=== PATIENT | female | born 1985 | race African-American/Black ===

== ENCOUNTER 2017-12-19 10:55 | Emergency (ER) | payer MEDICAID ==
[~2017-12-19] VITALS: Ht 154.9 cm; Wt 86.0 kg
[2017-12-19] MEDS ORDERED: KETOROLAC 30MG/ML VIAL IV STA (11:12)
[2017-12-19] MEDS ORDERED: SODIUM CHLORIDE 0.9% 1,000 ML IV ONE (11:12)
[2017-12-19 11:46] LABS: BASOPHILS % 0.6 % (0.0-2.0); EOSINOPHILS % 1.6 % (0.0-5.0); HEMATOCRIT. 36.9 % (36.0-48.0); HEMOGLOBIN. 11.9 g/dL (12.0-16.0); LYMPHOCYTES % 43.1 % (20.0-50.0); MEAN CORPUSCULAR HEMOGLOBIN 28.3 pg (28.0-32.0); MEAN CORPUSCULAR VOLUME 87.5 fL (81.0-99.0); MEAN PLATELET VOLUME 9.7 fl (7.4-10.4); MONOCYTES % 9.3 % (2.0-8.0); NEUTROPHILS % 45.4 % (40.0-76.0); PLATELET 202 x1000/uL (130-400); RED BLOOD CELL COUNT 4.21 mill/uL (4.2-5.4); RED CELL DISTRIBUTION WIDTH 14.5 % (11.6-14.6)
[2017-12-19 11:53] LABS: INR 1.1; PARTIAL THROMBOPLASTIN TIME 28.9 sec (23.4-31.0); PROTHROMBIN TIME 11.4 sec (9.4-11.6)
[2017-12-19 12:03] LABS: CARBON DIOXIDE 24 mEq/L (21-32); CHLORIDE 106 mEq/L (98-107); TROPONIN I < 0.02 ng/mL (0.00-0.04)
[2017-12-19 12:22] LABS: HCG SCREEN NEGATIVE
[2017-12-19 14:01] VITALS: BP 108/61
== END 2017-12-19 14:44 | disposition home or self-care (01) ==
LOC: ER 11:16
DX: R07.9 Chest pain, unspecified (principal); Z88.0 Allergy status to penicillin
CPT/HCPCS: 36415; 71045; 80048; 84484; 84703; 85025; 85610; 85730; 93005; 96361; 96374; 99285; J1885; J7030

== ENCOUNTER 2021-05-19 01:31 | Inpatient (IN) | payer MEDICAID ==
[~2021-05-19] VITALS: Ht 157.5 cm; Wt 95.3 kg
[2021-05-19 03:23] LABS: BASOPHILS % 0.9 % (0.0-2.0); EOSINOPHILS % 1.8 % (0.0-5.0); HEMATOCRIT. 37.4 % (36.0-48.0); HEMOGLOBIN. 12.5 g/dL (12.0-16.0); LYMPHOCYTES % 42.2 % (20.0-50.0); MEAN CORPUSCULAR HEMOGLOBIN 27.9 pg (28.0-32.0); MEAN CORPUSCULAR VOLUME 83.8 fL (81.0-99.0); MEAN PLATELET VOLUME 9.4 fl (7.4-10.4); NEUTROPHILS % 48.1 % (40.0-76.0); PLATELET 222 x1000/uL (130-400); RED BLOOD CELL COUNT 4.47 mill/uL (4.2-5.4)
[2021-05-19 03:25] LABS: CHLORIDE 106 mEq/L (98-107)
[2021-05-19 03:29] LABS: D-DIMER 0.56 mg/L FEU (<0.50); PROTHROMBIN TIME 10.5 sec (9.6-11.0)
[2021-05-19] MEDS ORDERED: KETOROLAC 15MG/ML VIAL IV ONE (04:15)
[2021-05-19] MEDS ORDERED: HYDROCODONE/ACETAMINOPHEN 5/325MG TABLET PO ONE (04:30)
[2021-05-19] MEDS ORDERED: IOHEXOL-350 100 ML BOTTLE ONE (05:19)
[2021-05-19] MEDS ORDERED: ASPIRIN 81MG TABLET PO ONE (06:15)
[2021-05-19 09:00] VITALS: BP 108/65
[2021-05-19] MEDS ORDERED: APIX5TAB MT (09:46)
[2021-05-19 10:00] VITALS: BP 108/65
[2021-05-19 12:00] VITALS: BP 101/59
[2021-05-19] MEDS: MORPHINE SULFATE 2 MG/ML CPJ (NOT FOR IM USE) IV PRN ×2 (14:53→20:30)
[2021-05-19 16:00] VITALS: BP 101/59
[2021-05-19] MEDS ORDERED: IPRATROPIUM/ALBUTEROL 0.5-3(2.5)MG/3ML NEB HHN PRN (17:00)
[2021-05-19] MEDS ORDERED: CLONIDINE 0.1MG TABLET PO PRN (17:00)
[2021-05-19] MEDS ORDERED: LORAZEPAM 0.5MG TABLET PO PRN (17:00)
[2021-05-19] MEDS ORDERED: HYDROCODONE/ACETAMINOPHEN 5/325MG TABLET PO PRN (17:00)
[2021-05-19] MEDS ORDERED: DOCUSATE SODIUM 100MG CAPSULE PO PRN (17:00)
[2021-05-19] MEDS ORDERED: ONDANSETRON HCL 4MG/2ML INJ IV PRN (17:00)
[2021-05-19] MEDS ORDERED: ACETAMINOPHEN 325MG TABLET PO PRN ×2 (17:00)
[2021-05-19] MEDS: ENOXAPARIN 30MG/0.3ML SYR SUBCUT SCH (17:41)
[2021-05-19 20:00] VITALS: BP 105/74
[2021-05-20] VITALS: BP 102/65
[2021-05-20 04:00] VITALS: BP 126/72
[2021-05-20] MEDS: ENOXAPARIN 30MG/0.3ML SYR SUBCUT SCH ×2 (06:02→18:00)
[2021-05-20 06:54] LABS: UCG SCREEN NEGATIVE
[2021-05-20 07:59] VITALS: BP 102/75
[2021-05-20 12:00] VITALS: BP 125/81
[2021-05-20] MEDS: MORPHINE SULFATE 2 MG/ML CPJ (NOT FOR IM USE) IV PRN ×2 (15:10→22:32)
[2021-05-20 16:00] VITALS: BP 133/82
[2021-05-20 20:00] VITALS: BP 117/81
[2021-05-21] VITALS: BP 107/52
[2021-05-21 04:00] VITALS: BP 110/60
[2021-05-21] MEDS: ENOXAPARIN 30MG/0.3ML SYR SUBCUT SCH (05:54)
[2021-05-21 08:00] VITALS: BP 115/81
[2021-05-21] MEDS: MORPHINE SULFATE 2 MG/ML CPJ (NOT FOR IM USE) IV PRN (09:09)
[2021-05-21 13:54] VITALS: BP 115/81
== END 2021-05-21 16:00 | disposition home or self-care (01) | DRG 203 ==
LOC: ER 01:31 → 8WST 07:55 → ENRESERV 08:22
PROVIDERS: ADMIT Internal Medicine; ATTEND Internal Medicine
DX: M94.0 Chondrocostal junction syndrome [Tietze] (principal); E66.9 Obesity, unspecified; M25.78 Osteophyte, vertebrae; M79.602 Pain in left arm; M48.9 Spondylopathy, unspecified; Z68.38 Body mass index [BMI] 38.0-38.9, adult; Z88.1 Allergy status to other antibiotic agents; Z88.0 Allergy status to penicillin; Z79.01 Long term (current) use of anticoagulants; Z87.891 Personal history of nicotine dependence; Z86.718 Personal history of other venous thrombosis and embolism; R53.1 Weakness
CPT/HCPCS: 36415; 70551; 71045; 71275; 72141; 72146; 72148; 80053; 81025; 83880; 84484; 85025; 85379; 93005; 93306; 99285; J1650; J1885; J2270; Q9967